=== PATIENT | female | born 1945 | race Caucasian/White ===

== ENCOUNTER 2018-05-16 21:56 | Emergency (ER) | payer MEDICARE, OTHER ==
[2018-05-16 22:12] VITALS: TEMP 98.6
[2018-05-16] MEDS ORDERED: ONDANSETRON ODT 4 MG TAB PO STA (22:19)
[2018-05-16] MEDS ORDERED: HYDROcodone/APAP 5-325MG 1 EACH TAB PO STA (22:19)
--- NOTE | 2018-05-16 22:23 | ED ---
General Adult HPI - General Chief complaint: Extremity Injury, Upper Stated complaint: fall/shoulder pain Time Seen by Provider: 05/16/18 22:14 Source: patient Mode of arrival: wheelchair Limitations: physical limitation - History of Present Illness Initial comments: 72-year-old female presenting with right shoulder pain status post fall. Sensation states she was walking when she tripped over a plank landing on her right shoulder. Since then she's had extreme pain with any motion. She denies history of shoulder dislocations. She took 800 mg of Motrin at 9 PM without relief. Denies blood thinner use or head injury. - Related Data Previous Rx's Medication Instructions Recorded HYDROcodone/APAP 5-325MG [[place] 1 tab PO Q6HR PRN 3 Days #12 tab 05/17/18 5-325] Ibuprofen [Motrin] 600 mg PO Q6HR PRN #20 tab 05/17/18 Allergies Allergy/AdvReac Type Severity Reaction Status Date / Time Sulfa (Sulfonamide Allergy Swelling Verified 05/16/18 22:12 Antibiotics) Review of Systems ROS Statement: Those systems with pertinent positive or pertinent negative responses have been documented in the HPI. Review of Systems Constitutional: Denies fever, chills Eyes: Denies change in vision, Denies pain Ears, nose, mouth, throat: Denies headaches, Denies sore throat Cardiovascular: Denies chest pain. Denies palpitations Respiratory: Denies shortness of breath, Denies cough Gastrointestinal: Denies abdominal pain. Denies nausea, vomiting, diarrhea. Genitourinary: Denies hematuria, Denies infections Musculoskeletal: Positive right shoulder pain. Denies swelling Integumentary: Denies rash Neurological: Denies headache, focal weakness, focal numbness Psychiatric: Denies anxiety, Denies depression Hematologic/Lymphatic: Denies easy bleeding or bruising ROS Other: All systems not noted in ROS Statement are negative. Past Medical History Past Medical History: Asthma, Hypertension History of Any Multi-Drug Resistant Organisms: None Reported Past Surgical History: No Surgical Hx Reported Past Psychological History: No Psychological Hx Reported Smoking Status: Never smoker Past Alcohol Use History: None Reported Past Drug Use History: None Reported General Exam - General Exam Comments Initial Comments: General: Awake, alert, No acute Distress HENT: Normocephalic. Atraumatic Eyes: PERRL. EOMI. No scleral icterus. No injected conjunctiva Neck: Full ROM Chest/Lungs: Clear to auscultation bilaterally. No wheezing, rhonchi, or rales Cardiac: Regular rate, rhythm. No murmurs or rubs. 2+ radial pulse on the RUE. Abdomen/GI: [Soft, nontender, nondistended. No rebound, guarding, or rigidity. Musculoskeletal: Fight shoulder limited ROM secondary to pain. C5-T1 intact. No midline cervical spine tenderness Skin: Warm, dry, intact Neurologic: A/Ox3, no weakness, no sensory deficit, no abdnormal gait, no coordination deficit Limitations: physical limitation Course Vital Signs 05/16/18 05/16/18 05/17/18 22:08 23:55 00:00 Temperature 98.6 F Pulse Rate 56 L 70 59 L Respiratory 16 18 18 Rate Blood Pressure 150/43 168/81 183/79 O2 Sat by Pulse 95 98 98 Oximetry 05/17/18 00:05 Temperature Pulse Rate 52 L Respiratory 18 Rate Blood Pressure 164/72 O2 Sat by Pulse 98 Oximetry Procedures - Orthopedic Joint Reduction Joint #1 Consent Obtained: written consent Side: right Joint Reduction Location: shoulder Analgesia: procedural sedation Shoulder Technique Used (if applicable): external rotation Post-Reduction Neuro Exam: intact Post-Reduction Vascular Exam: intact Post Reduction X-Ray Obtained: Yes Post Reduction X-Ray Results: reduced Splint Applied: No (Shoulder immobilizer placed ) Patient Tolerated Procedure: well - Procedural Sedation Procedural Sedation Start Time: 00:00 Procedural Sedation Stop Time: 00:30 Indications: fracture/dislocation reduction ASA Class: II Mallampati Airway Score: 2 Preparation: clinical research monitor applied, pulse oximeter, capnometry used, supplemental O2 applied, reversal agents at bedside, suction/airway equipment at bedside, IV secured IV Etomidate Dose (mgs): 10 Complications: none Patient Tolerated Procedure: well Medical Decision Making - Medical Decision Making 72 yoF presenting with shoulder pain s/p fall. On initial exam the patient is awake, alert, and appears uncomfortable. VSS. Patient denies head injury and is not on any blood thinners. XR shows anterior dislocation with humeral head fracture. Patient underwent conscious sedation and closed reduction. She tolerated the procedure well. She was placed in a shoulder immobilizer. Patient monitored after sedation and is tolerating PO. She is neurovascularly intact. Patient will be given orthopedic follow up. No further emergent workup indicated. The patient was given return to ED instructions. They were instructed to follow up with their primary care provider. Stable for discharge at this time. Disposition Clinical Impression: Dislocation of shoulder region, Fracture of humerus Disposition: HOME SELF-CARE Condition: Good Instructions: Arm Fracture in Adults (ED), Shoulder Dislocation (ED) Prescriptions: HYDROcodone/APAP 5-325MG [[place] 5-325] 1 tab PO Q6HR PRN 3 Days #12 tab PRN Reason: Pain Control Ibuprofen [Motrin] 600 mg PO Q6HR PRN #20 tab PRN Reason: Pain Control Is patient prescribed a controlled substance at d/c from ED?: Yes When asked, does pt state using other controlled substances?: No If prescribed controlled substance>3 days was MAPS reviewed?: Prescribed <3 Days If opioid is for acute pain is fill amount 7 days or less?: Yes If Rx opioid, was Start Talking consent form obtained?: Yes Referrals: Nonstaff,Physician [Primary Care Provider] - 1-2 days Merced Campos, PAC [PHYSICIAN PHYTOCHEMISTRY PROFESSOR] - 1-2 days
[2018-05-16] MEDS ORDERED: ETOMIDATE 2 MG/ML 10 ML VIAL IV STA (23:09)
[2018-05-16] MEDS ORDERED: ONDANSETRON 4 MG/2 ML VIAL IVP STA (23:09)
[2018-05-16] MEDS ORDERED: SODIUM CHLORIDE 0.9% 500 ML IV STA (23:09)
--- NOTE | 2018-05-16 23:09 | XR ---
EXAM: XR Right Shoulder Complete, 2 or More Views CLINICAL HISTORY: ITS.REASON XR Reason: Pain TECHNIQUE: Two or more views of the right shoulder. COMPARISON: No relevant prior studies available. FINDINGS: See Impression. IMPRESSION: Anterior inferior dislocation of the humeral head (relative to the glenoid) with displaced and comminuted Hill-Sachs type fracture of the humeral head to include involvement of the greater tubercle. No obvious glenoid fracture on limited assessment. No other significant injury. Critical Value Communications 05/16/18 23:21 Call From [facility] DR LOPEZ
[2018-05-17 00:06] VITALS: RESP 18
[2018-05-17 00:09] VITALS: BP 164/72; PULSE 52
--- NOTE | 2018-05-17 00:42 | XR ---
EXAMINATION TYPE: XR shoulder limited RT DATE OF EXAM: 05/17/2018 COMPARISON: Yesterday HISTORY: Post reduction TECHNIQUE: Single view. FINDINGS: There is anatomic reduction of the glenohumeral joint. There is a comminuted fracture of the greater tuberosity of the humerus. IMPRESSION: Anatomic reduction. Greater tuberosity fracture.
[2018-05-17] MEDS ORDERED: IBUPROFEN 600 MG STARTER PACK 4 TAB BTL PO STA (01:16)
[2018-05-17] MEDS ORDERED: ONDANSETRON 4 MG ODT STARTER PACK 2 TAB BTL PO STA (01:16)
== END 2018-05-17 02:01 | disposition home or self-care (01) ==
LOC: EC 21:56
DX: S42.251A Displaced fracture of greater tuberosity of right humerus, initial encounter for closed fracture (principal); Z88.2 Allergy status to sulfonamides; W18.09XA Striking against other object with subsequent fall, initial encounter; Y93.01 Activity, walking, marching and hiking
CPT/HCPCS: 73020; 73030; 99283; 23665; 99152; 99153; 96374; 96361; J2405; S0119